=== PATIENT | female | born 1990 | race Two or more races ===

== ENCOUNTER 2019-01-19 01:21 | Emergency (ER) | payer OTHER ==
[~2019-01-19] VITALS: Ht 167.6 cm; Wt 97.5 kg
--- NOTE | 2019-01-19 01:30 | NUR ---
PT BIBRA S/P ASLEEP ON SIDEWALK, ASKING FOR REFILL BUT DOESN'T KNOW WHICH MED. PT DENIES PAIN ANY PAIN AT THIS TIME. NAD NOTED. RESP EVEN AND UNLABORED. PT ON MONITOR IN BED 14. WILL CONTINUE TO MONITOR.
[2019-01-19] MEDS ORDERED: OLANZAPINE 5 MG TABLET ONE (01:48)
[2019-01-19] MEDS ORDERED: OLANZAPINE 5 MG TABLET PO ONE (02:00)
--- NOTE | 2019-01-19 04:22 | NUR ---
Patient is resting comfortably in bed with eyes closed. Easily aroused. VSS.
--- NOTE | 2019-01-19 06:09 | NUR ---
OFFERED PT FOOD, DRINKS, HOMELESS RESOURCES AND TAP CARD, PT STATES " I DONT HAVE A PLACED TO GO, I WANT TO SEE A EARLY CHILDHOOD ASSOCIATE IN THE MORNING." DR. COE AND RN AZIZA ELLSWORTH MADE AWARE.
--- NOTE | 2019-01-19 07:36 | NUR ---
RECEIVED REPORT FROM AG ROMO FOR [facility]. PT IS ASLEEP BUT EASILY AROUSABLE, AWAITING MANAGER CARDIOLOGY FOR PT EVAL.
--- NOTE | 2019-01-19 08:20 | NUR ---
NICOLE JUNIOR AT BEDSIDE FOR EVAL.
--- NOTE | 2019-01-19 08:34 | NUR ---
PT IS MEDICALLY DISCHARGE, FOOD TRAY GIVEN AND BUS CARD, HOMELESS RESOURCES OFFERED, ID BAND REMOVE, V.S STABLE, NOT IN RESPIRAOTRY DISTRESS.
[2019-01-19 08:37] VITALS: BP 100/50
--- NOTE | 2019-01-19 08:41 | NUR ---
Social service consult requested by RY Jacobs for homelessness. Pt. is a 29 year old female who was brought in by rescue ambulance to [facility]. Pt. stated she needed a med refill for Bipolar disorder. SW met with pt. bedside. Pt. appears disheveled. Pt. had her belongings bedside. Pt. is ambulatory. SW inquired with pt. how long she has been homeless, but pt. didn't respond. Pt. was not very cooperative and forthcoming with information. SW provided pt. with [facility] [phone] and explained the vegetable picker time and location. [facility] Homeless Directory was offered to the pt. as well as the following resources: Behavioral Health and Substance Abuse Referrals and Clinics for Screening -[facility] [address] [place] [address] Not a alf, do not send patients there for shelters. Homeless resources. Appointment is needed. [phone] Homeless mentally ill people may be seen at [facility] on a walk-in basis. -[facility] (Behavioral Health) [address] [facility], 2nd [place] [address] Main Number: [facility] ([facility]): Contact -[facility] [address] [place] [address] Walk-in for psychiatric consultation HOURS: Thu-Thu 8am--7pm Saturdays 9am--5:30pm Closed on Sundays Clinic stated that walk-ins are welcome, but there will be a long wait. No appointments. Services: mental health services, medications, director of community education for resource linkage. -[facility] (Behavioral Health) [facility] Walk-in during certain hours [address]IA Gunter [address] Operation Hours: THU - THU 8:00 a.m. - 5:00 p.m. Walk In Hours: THU - THU 8:00 a.m. - 5:00 p.m. Services by Age: Adults and Older Adults Counseling [facility] Family [facility]ing Appointment needed [address] [facility] [address] Counseling [place] [address] [facility]. [address] [facility] [id number] Healthcare Clinics for Homeless Patients [facility] [address] [facility], Vaccines and infectious disease resource [address] [place]. [place] Hours: M, T, Th, F 8:30AM-4:30PM Walk-ins allowed Provide medical screening and pharmacy [facility] [address] [place] [address] Vaccines and infectious diseases Hours M-F 8AM-3:30PM Walk-ins allowed Provide medical screening and pharmacy [facility] [address] [place] [address] Hours 8AM-4:30PM Walk-ins allowed Provide medical screening and pharmacy Alcohol and Drug Treatment Programs [facility] Substance Abuse Self-helpline ([facility]) Substance Abuse Contact number . Call the hotline and the cylinder press operator helper will screen and link individual to an appropriate program. Must have Medi-suman or be Med-suman eligible. [facility] [address] [place] [address] [facility] [address] [facility] [place] [address] Appointment needed [facility] Rehabilitation Program (Quaker based) [address] [facility] [place] [address] (Six months program and need to work for 8 hrs per day while in treatment) [facility] (No insurance required) [address] [place] [address] [facility] [address] [facility] [address] Closed on Thursday Open Thursday through Thursday 9 am -6 pm Thursday 10am 5 pm Closed on Thursday [facility] [phone] [place] [address] Prefer phone calls. They do allow walk-ins but prefer appointments. Pt. was also provided with breakfast and a TAP card. Homeless patient Waiver Form was signed by the pt. and placed in pt's chart. No other social service needs are requested at this time. SW is available, if needed.
== END 2019-01-19 08:44 | disposition home or self-care (01) ==
LOC: ER 01:23
DX: F31.9 Bipolar disorder, unspecified (principal); B35.3 Tinea pedis; F20.9 Schizophrenia, unspecified; Z59.0 Homelessness; Z88.8 Allergy status to other drugs, medicaments and biological substances
CPT/HCPCS: 99283; A4606